=== PATIENT | female | born 1975 | race Caucasian/White ===

== ENCOUNTER → 2016-12-26 | Outpatient (CLI) | payer BC ==
--- NOTE | 2016-12-26 19:50 | REP ---
RIGHT WRIST SERIES, COMPLETE: 12/26/2016: Clinical history: Right wrist pain, base of the thumb. Comparison: None. Findings: Four views show the distal radius and ulna without fracture or focal lesion. Carpal bones and their articulations were unremarkable except for a small bone cyst in the ulnar aspect of the lunate and a tiny bone cyst in the capitate as benign findings. No fracture or erosive change. No fracture or subluxation about the metacarpals or MCP joints. I do not see significant CMC joint arthritis of the thumb. Impression: 1. No visible or displaced fracture, avulsion or erosion. There are a few small bone cysts in the wrist. No acute bony finding. Signed by Tony Taveras MD 12/26/2016 08:36 P
== END ==
LOC: M ADAMS 13:07
PROVIDERS: ATTEND Physician Assistant Medical
DX: M25.531 Pain in right wrist (principal)

== ENCOUNTER → 2017-01-22 | Outpatient (CLI) | payer BC ==
[2017-01-22 15:07] LABS: BASO % 0.3 % (0.0-1.0); EOS # 0.1 K/mm3 (0.0-0.50); EOS % 2.4 % (0.0-3.0); LARGE UNSTAINED CELL # 0.1 K/mm3 (0.0-0.4); LARGE UNSTAINED CELL % 3.2 % (0.0-4.0); LYMPH # 1.7 K/mm3 (1.5-4.5); LYMPH % 37.7 % (24.0-44.0); MEAN CORPUSCULAR HEMOGLOBIN 31.1 pg (27.0-33.0); MEAN CORPUSCULAR HGB CONC 33.8 g/dl (32.0-36.5); MONO # 0.2 K/mm3 (0.0-0.8); MONO % 4.4 % (0.0-5.0); NEUTROPHILS # 2.3 K/mm3 (1.8-7.7); PLATELET COUNT, AUTOMATED 192 k/mm3 (150-450); RED CELL DISTRIBUTION WIDTH 12.9 % (11.5-14.5); WHITE BLOOD COUNT 4.4 K/mm3 (4.0-10.0)
[2017-01-22 15:56] LABS: ALBUMIN 3.8 GM/DL (3.2-5.2); ALBUMIN/GLOBULIN RATIO 1.27 (1.00-1.93); ALKALINE PHOSPHATASE 59 U/L (45-117); ALT/SGPT 22 U/L (12-78); ANION GAP 7 MEQ/L (8-16); AST/SGOT 19 U/L (15-37); BILIRUBIN,TOTAL 0.3 MG/DL (0.2-1.0); BLOOD UREA NITROGEN 16 MG/DL (7-18); CALCIUM LEVEL 8.3 MG/DL (8.5-10.1); CARBON DIOXIDE LEVEL 26 MEQ/L (21-32); CHLORIDE LEVEL 109 MEQ/L (98-107); CREATININE FOR GFR 0.68 MG/DL (0.55-1.02); GLOMERULAR FILTRATION RATE > 60.0 (>60); GLUCOSE, FASTING 91 MG/DL (70-105); POTASSIUM SERUM 4.2 MEQ/L (3.5-5.1); SODIUM LEVEL 142 MEQ/L (136-145); TOTAL PROTEIN 6.8 GM/DL (6.4-8.2)
== END ==
LOC: M LAB 14:34
PROVIDERS: ATTEND Family Medicine
DX: R23.3 Spontaneous ecchymoses (principal)

== ENCOUNTER 2019-05-14 12:15 | Day surgery (SDC) | payer BC ==
[2019-05-14] VITALS (8 sets, daily range): BP systolic 90–122; BP diastolic 46–75
[~2019-05-14] VITALS: Ht 167.6 cm; Wt 76.7 kg
[~2019-05-14 12:15] MED LIST: FLEC50HA PO; LEVOTAB10 PO; LR 1,000 ML IV ONE; ceFAZolin SOD 2 GM in IV 1 EA IV ONE
[2019-05-14 12:53] LABS: HEMATOCRIT 38.6 % (36.0-47.0); HEMOGLOBIN 12.7 g/dl (12.0-15.5); MEAN CORPUSCULAR HEMOGLOBIN 30.5 pg (27.0-33.0); MEAN CORPUSCULAR HGB CONC 32.9 g/dl (32.0-36.5); MEAN CORPUSCULAR VOLUME 92.8 fl (80.0-96.0); PLATELET COUNT, AUTOMATED 220 10^3/uL (150-450); RED BLOOD COUNT 4.16 10^6/uL (4.00-5.40); WHITE BLOOD COUNT 5.5 10^3/uL (4.0-10.0)
[2019-05-14] MEDS ORDERED: ROCURONIUM BROMIDE 50 MG/5 ML VIAL As Ordered ONE (13:03)
[2019-05-14] MEDS ORDERED: LIDOCAINE 2% INJ 100 MG/5 ML SDV (FOR ANES.) As Ordered ONE (13:03)
[2019-05-14] MEDS ORDERED: PROPOFOL 200 MG/20 ML VIAL As Ordered ONE (13:03)
[2019-05-14] MEDS ORDERED: ONDANSETRON 4MG/2ML VIAL (J2405) As Ordered ONE ×2 (13:04→15:30)
[2019-05-14] MEDS ORDERED: MIDAZOLAM INJ 2 MG/2 ML VIAL (J2250) As Ordered ONE (13:04)
[2019-05-14] MEDS ORDERED: fentaNYL 100 MCG/2 ML INJECTION (J3010) As Ordered ONE ×3 (13:04→14:50)
[2019-05-14] MEDS ORDERED: dexameTHASONE 4 MG/ML 1ML VIAL (J1100) As Ordered ONE (13:04)
[2019-05-14] MEDS ORDERED: SUGAMMADEX SODIUM 500 MG/5 ML VIAL (BRIDION) As Ordered ONE (13:34)
[2019-05-14] MEDS ORDERED: KETOROLAC 60 MG/2 ML VIAL (J1885) As Ordered ONE (13:34)
[2019-05-14] MEDS ORDERED: ACETAMINOPHEN 1000MG 100ML IV BTL (OFIRMEV) (J0131 PER 10MG) As Ordered ONE (13:34)
[2019-05-14] MEDS ORDERED: MEPERIDINE INJ 25 MG/ML VIAL (J2175) As Ordered ONE (15:24)
[2019-05-14] MEDS ORDERED: MORPHINE 1MG/ML IN 0.9% NACL 100ML IV BAG As Ordered ONE (15:24)
[2019-05-14] MEDS: MEPERIDINE INJ 25 MG/ML VIAL (J2175) IV PRN ×2 (15:27→15:37)
[2019-05-14] MEDS: ONDANSETRON 4MG/2ML VIAL (J2405) IV PRN ×2 (15:27→16:08)
[2019-05-14] MEDS ORDERED: LR 1,000 ML IV SCH (15:45)
[2019-05-14] MEDS ORDERED: oxyCODONE 5MG TAB PO PRN (15:45)
[2019-05-14] MEDS ORDERED: fentaNYL 100 MCG/2 ML INJECTION (J3010) IV PRN (15:45)
[2019-05-14] MEDS ORDERED: METOCLOPRAMIDE INJ 10MG/2ML VIAL (J2765) IV PRN (15:45)
--- NOTE | 2019-05-14 16:20 | RO ---
DATE OF PROCEDURE: 05/14/2019 PREOPERATIVE DIAGNOSIS/INDICATION FOR SURGERY: Pain and bleeding. POSTOPERATIVE DIAGNOSIS: Pain and bleeding. PROCEDURE: Total vaginal hysterectomy with bilateral salpingectomy. The patient retains her ovaries at her request. SURGEON: Dr. Ordonez. ANESTHESIA: General endotracheal anesthesia. RHINOLOGIST: None. BRIEF DESCRIPTION OF PROCEDURE AND FINDINGS: Catalina was brought to the operating room where sufficient general endotracheal anesthesia was induced. She was prepped, draped and positioned in the usual sterile fashion with the bladder emptied and the weighted speculum placed in the anterior aspect of the cervix was grasped with a single tooth tenaculum as was the posterior aspect and a circumferential incision was made around the base of the cervix. Following which the cardial ligaments were isolated, clamped with the Boo clamps which were used throughout the portion of the case and transected using the supercut scissors. A 0 Vicryl suture was then used for hemostasis. We then proceeded to the uterosacrals which were clamped transected and ligated to help for later reattachment and incorporation into the cuff closure and the posterior reflection of the peritoneum was entered using the supercut scissors and the Deepali retractor placed. The anterior dissection was carefully continued to create the bladder flap and the uterine vasculare was then carefully clamped, transected and ligated along the lateral aspect of the uterus sticking close to the uterus, taking care to avoid injury to the ureters. We then reached the level of the pedicles of the tubes. The tube was transected to improve uterine mobility and then we were able to bring out the pedicle of the tube on the right side so the uterus and that tube was brought down but then the tube was quite friable so we went ahead and transected that after we had the uterine vasculature supported and we then completed the removal of first the right tube and then the left. We used sponge and a stick to check the pedicles. We had good hemostasis and there was a little bit of oozing at the cuff itself which was controlled with angle stitches of 0 Vicryl which also incorporated the uterosacrals and then we closed the cuff in a running locked stitch of 0-Vicryl with good approximation and hemostasis was achieved. A Nuñez was placed at the end of the case. ESTIMATED BLOOD LOSS FOR THE PROCEDURE: About 150 mL. FLUID REPLACEMENT: Crystalloid. COMPLICATIONS: None. CONDITION AND DISPOSITION: Catalina tolerated the procedure well and was recovering in the recovery room in good condition.
[2019-05-14] MEDS ORDERED: IBUPROFEN 600 MG TAB PO PRN (16:46)
[2019-05-14] MEDS ORDERED: NALBUPHINE HCL 10 MG/ML AMP (J2300) IV PRN (16:46)
[2019-05-14] MEDS ORDERED: diphenhydrAMINE INJ 50MG/ML VIAL (J1200) IV PRN (16:46)
[2019-05-14] MEDS ORDERED: EPIDURAL/PCA KEYS XX PRN (16:46)
[2019-05-14] MEDS ORDERED: MORPHINE 1MG/ML IN 0.9% NACL 100ML IV BAG IV PRN (16:46)
[2019-05-14] MEDS ORDERED: NALOXONE INJ 0.4 MG/1 ML VIAL (J2310) IV PRN (16:46)
[2019-05-14] MEDS: LR 1,000 ML IV SCH (19:05)
[2019-05-14] MEDS: FLECAINIDE 50MG TABLET PO SCH (20:56)
[2019-05-14 22:51] LABS: HEMATOCRIT 32.5 % (36.0-47.0); HEMOGLOBIN 10.8 g/dl (12.0-15.5)
[2019-05-15] MEDS: LR 1,000 ML IV SCH ×2 (02:57→07:58)
[2019-05-15 05:56] LABS: HEMATOCRIT 31.4 % (36.0-47.0); HEMOGLOBIN 10.5 g/dl (12.0-15.5); MEAN CORPUSCULAR HEMOGLOBIN 30.5 pg (27.0-33.0); MEAN CORPUSCULAR HGB CONC 33.4 g/dl (32.0-36.5); MEAN CORPUSCULAR VOLUME 91.3 fl (80.0-96.0); PLATELET COUNT, AUTOMATED 170 10^3/uL (150-450); RED BLOOD COUNT 3.44 10^6/uL (4.00-5.40); WHITE BLOOD COUNT 8.6 10^3/uL (4.0-10.0)
[2019-05-15 06:00] VITALS: BP 105/57
[2019-05-15] MEDS: FLECAINIDE 50MG TABLET PO SCH (07:56)
[2019-05-15] MEDS: NORCO, ANEXSIA 5/325MG TABLET (HYDROcodone/ACETAMINOPHEN) PO PRN ×2 (07:57→12:59)
[2019-05-15] MEDS ORDERED: NORC1TAB7 PO (08:12)
[2019-05-15] MEDS ORDERED: ADVI100T PO (08:12)
[2019-05-15 10:00] VITALS: BP 97/68
== END 2019-05-15 13:17 | disposition home or self-care (01) ==
LOC: M SDC 12:15 → M MSPAV 16:36 → M SDC 05-15 13:17
PROVIDERS: ATTEND Obstetrics & Gynecology
DX: N92.6 Irregular menstruation, unspecified (principal); N80.0 Endometriosis of uterus; Z79.899 Other long term (current) drug therapy; Z91.013 Allergy to seafood; Z91.041 Radiographic dye allergy status
CPT/HCPCS: 36415; 58262; 81025; 85014; 85018; 85027; 86850; 86900; 86901; 88307; J0131; J0690; J1100; J1885; J2175; J2250; J2405; J3010

== ENCOUNTER 2019-05-17 20:48 | Emergency (ER) | payer BC ==
[~2019-05-17] VITALS: Ht 167.6 cm; Wt 74.5 kg
[~2019-05-17 20:48] MED LIST changes: +ADVI100T PO; -LR 1,000 ML IV ONE; +NORC1TAB7 PO; -ceFAZolin SOD 2 GM in IV 1 EA IV ONE
[2019-05-17] MEDS ORDERED: FLEC25TA (20:55)
[2019-05-17] MEDS ORDERED: HYDR-3713 (20:55)
[2019-05-17] MEDS ORDERED: IBUP-1022 (20:55)
[2019-05-17] MEDS ORDERED: NS 1,000 ML IV ONE (21:30)
[2019-05-17 21:45] LABS: BASO % 0.3 % (0.0-1.0); EOS # 0.2 10^3/uL (0.0-0.5); EOS % 3.1 % (0.0-3.0); HEMATOCRIT 35.4 % (36.0-47.0); LYMPH # 1.3 10^3/uL (1.5-5.0); LYMPH % 19.4 % (24.0-44.0); MEAN CORPUSCULAR HEMOGLOBIN 30.8 pg (27.0-33.0); MEAN CORPUSCULAR HGB CONC 33.9 g/dl (32.0-36.5); MONO # 0.7 10^3/uL (0.0-0.8); MONO % 9.9 % (0.0-5.0); NEUTROPHILS # 4.4 10^3/uL (1.5-8.5); NEUTROPHILS % 66.8 % (36.0-66.0); PLATELET COUNT, AUTOMATED 200 10^3/uL (150-450); RED BLOOD COUNT 3.89 10^6/uL (4.00-5.40); WHITE BLOOD COUNT 6.6 10^3/uL (4.0-10.0)
[2019-05-17 22:16] LABS: ALBUMIN 3.5 GM/DL (3.2-5.2); ALT/SGPT 12 U/L (12-78); BILIRUBIN,TOTAL 0.4 MG/DL (0.2-1.0); BLOOD UREA NITROGEN 8 MG/DL (7-18); CALCIUM LEVEL 8.5 MG/DL (8.5-10.1); CARBON DIOXIDE LEVEL 25 MEQ/L (21-32); CHLORIDE LEVEL 109 MEQ/L (98-107); GLOMERULAR FILTRATION RATE > 60.0 (>58); GLUCOSE, FASTING 92 MG/DL (70-100); POTASSIUM SERUM 4.1 MEQ/L (3.5-5.1); SODIUM LEVEL 143 MEQ/L (136-145); TOTAL PROTEIN 6.5 GM/DL (6.4-8.2)
[2019-05-17] MEDS ORDERED: READI-CAT 2 PO SCH (23:15)
[2019-05-17 23:34] VITALS: BP 136/66
== END 2019-05-17 23:43 | disposition left against medical advice (07) ==
LOC: M ED 20:48
DX: R19.7 Diarrhea, unspecified (principal); Z86.79 Personal history of other diseases of the circulatory system; Z79.899 Other long term (current) drug therapy; Z91.041 Radiographic dye allergy status; Z91.89 Other specified personal risk factors, not elsewhere classified; Z91.013 Allergy to seafood; Z53.21 Procedure and treatment not carried out due to patient leaving prior to being seen by health care provider

== ENCOUNTER → 2020-01-15 | Outpatient (CLI) | payer BC ==
[~2020-01-15] MED LIST changes: +FLEC25TA; +HYDR-3713; +IBUP-1022
--- NOTE | 2020-01-16 08:19 | REP ---
PELVIS: Complete exam of the pelvis includes five views. There is no acute fracture or dislocation. There is partial sacralization of L5 on the left. Mild tendinous calcification is seen at the left greater trochanter of the proximal left femur. IMPRESSION: No acute fracture or dislocation. Electronically Signed by Elieser Ramon MD 01/17/2020 11:23 P
== END ==
LOC: M ADAMS 13:40
PROVIDERS: ATTEND Physician Assistant
DX: S39.013A Strain of muscle, fascia and tendon of pelvis, initial encounter (principal); X58.XXXA Exposure to other specified factors, initial encounter; Y92.89 Other specified places as the place of occurrence of the external cause

== ENCOUNTER 2020-09-12 14:20 | Emergency (ER) | payer BC ==
[~2020-09-12] VITALS: Ht 167.6 cm; Wt 77.8 kg
[2020-09-12] MEDS ORDERED: xyzal (14:38)
[2020-09-12 15:07] LABS: BASO % 0.6 % (0.0-1.0); EOS # 0.1 10^3/uL (0.0-0.5); EOS % 2.1 % (0.0-3.0); HEMATOCRIT 40.4 % (36.0-47.0); HEMOGLOBIN 13.3 g/dl (12.0-15.5); LYMPH # 1.9 10^3/uL (1.5-5.0); LYMPH % 35.6 % (24.0-44.0); MEAN CORPUSCULAR HEMOGLOBIN 30.1 pg (27.0-33.0); MEAN CORPUSCULAR HGB CONC 32.9 g/dl (32.0-36.5); MEAN CORPUSCULAR VOLUME 91.4 fl (80.0-96.0); MONO # 0.4 10^3/uL (0.0-0.8); MONO % 8.3 % (2.0-8.0); NEUTROPHILS # 2.8 10^3/uL (1.5-8.5); PLATELET COUNT, AUTOMATED 225 10^3/uL (150-450); RED BLOOD COUNT 4.42 10^6/uL (4.00-5.40); WHITE BLOOD COUNT 5.3 10^3/uL (4.0-10.0)
--- NOTE | 2020-09-12 15:16 | REP ---
INDICATION: CHEST PAIN COMPARISON: 06/14/2012 TECHNIQUE: Portable AP view of the chest FINDINGS: The mediastinum and cardiac silhouette are stable and within normal limits for portable technique. The lung hawthorne demonstrate stable chronic changes without acute consolidation, effusion, or pneumothorax. Skeletal structures are intact. IMPRESSION: No acute cardiopulmonary process appreciated. <Electronically signed by Kishore Dockery > 09/12/20 [id number]
[2020-09-12 15:24] LABS: PROTHROMBIN TIME 13.4 SECONDS (12.5-14.3)
[2020-09-12] MEDS ORDERED: LEVOTAB10 PO (15:35)
[2020-09-12 15:43] LABS: ALBUMIN 4.2 GM/DL (3.2-5.2); BILIRUBIN,DIRECT 0.1 MG/DL (0.0-0.2); BILIRUBIN,TOTAL 0.4 MG/DL (0.2-1.0); THYROID STIMULATING HORMONE 2.28 uIU/ML (0.358-3.740); TOTAL PROTEIN 7.3 GM/DL (6.4-8.2)
--- NOTE | 2020-09-12 16:07 | ECGEPIP ---
[facility] - ED Test Date: 2020-09-12 Pat Name: REYNA LOVE Department: Room: - Gender: Female Legal Paraprofessional: CHIDI : [id number] Requested By: NATALIA GRULLON Order Number: [id number] Reading MD: Junito Spaulding Measurements Intervals [place] Rate: 56 P: 56 [place]: 184 QRS: 75 QRSD: 82 T: 50 QT: 426 QTc: 411 Interpretive Statements Sinus bradycardia NO PRIORS FOR COMPARISON Electronically Signed on 09-12-2020 16:06:55 EST by Junito Spaulding
[2020-09-12 17:00] VITALS: BP 104/68
--- NOTE | 2020-09-13 12:04 | ECGEPIP ---
[facility] - ED Test Date: 2020-09-12 Pat Name: REYNA LOVE Department: Room: - Gender: Female Ticket Counter: ROHAN : 1975 Requested By: NATALIA GRULLON Order Number: [id number] Reading MD: Junito Spaulding Measurements Intervals [place] Rate: 65 P: 21 [place]: 98 QRS: 95 QRSD: 136 T: -60 QT: 452 QTc: 470 Interpretive Statements Sinus rhythm with premature atrial complexes with aberrant conduction in a pattern of bigeminy ECTOPY NEW COMPARED TO PRIOR ON SAME DATE Electronically Signed on 09-13-2020 12:03:49 EST by Junito Spaulding
[2020-09-14 23:10] LABS: FLECAINIDE LEVEL 0.11 ug/mL (0.20-1.00)
== END 2020-09-12 17:02 | disposition home or self-care (01) ==
LOC: M ED 14:20 → CANBEDREQ 15:44 → M ED 17:02
DX: I49.3 Ventricular premature depolarization (principal); R00.1 Bradycardia, unspecified; R42 Dizziness and giddiness; Z79.899 Other long term (current) drug therapy

== ENCOUNTER → 2020-09-28 | Outpatient (CLI) | payer BC ==
[~2020-09-28] MED LIST changes: +xyzal
--- NOTE | 2020-09-28 09:49 | REP ---
INDICATION: N64.4 LT BREAST MASTODYNIA. Patient reports left breast pain from 2:00 to 4:00 position laterally. Previously thought she felt a lump in this region but not able to feel lump today. COMPARISON: Comparison mammography is from 25 July 2020.. TECHNIQUE: The left lateral breast is scanned sonographically. FINDINGS: There are multiple small benign subcentimeter cysts. Heterogeneous fibroglandular background echotexture is seen. At the 3 o'clock position in the area of pain, 4 cm from the nipple, there is a 0.6 by 0.6 x 0.4 cm cyst. This is the largest cyst visible. It does not appear sonographically suspicious. IMPRESSION: BI-RADS category 2 benign findings. A small cyst is visible in the lateral left mid breast. Otherwise negative. Clinical follow-up is advised. <Electronically signed by Pablo Castañeda > 09/28/20 [id number]
== END ==
LOC: M WHC 08:09
PROVIDERS: ATTEND Family Medicine
DX: N60.12 Diffuse cystic mastopathy of left breast (principal); N64.4 Mastodynia

== ENCOUNTER → 2021-04-07 | Outpatient (CLI) | payer BC ==
--- NOTE | 2021-04-07 09:07 | REP ---
INDICATION: CONTUSION OF THE RIGHT WALL THORAX COMPARISON: None. TECHNIQUE: Frontal view of the chest with multiple views of the right hemithorax. FINDINGS: Frontal view of the chest demonstrates no acute cardiopulmonary process, contusion, effusion, or pneumothorax. Multiple views of the hemithorax demonstrates no acute rib fracture/injury or pathology. IMPRESSION: Normal rib series. No significant or displaced right rib fracture identified. <Electronically signed by Kishore Dockery > 04/07/21 [id number]
== END ==
LOC: M ADAMS 08:07
PROVIDERS: ATTEND Family Medicine
DX: S20.211A Contusion of right front wall of thorax, initial encounter (principal); X58.XXXA Exposure to other specified factors, initial encounter; Y92.89 Other specified places as the place of occurrence of the external cause; Y93.9 Activity, unspecified; Y99.9 Unspecified external cause status

== ENCOUNTER → 2021-10-18 | Outpatient (CLI) | payer BC ==
[2021-10-18 16:21] LABS: HEMATOCRIT 37.1 % (36.0-47.0); HEMOGLOBIN 12.5 g/dl (12.0-15.5); MEAN CORPUSCULAR HEMOGLOBIN 31.5 pg (27.0-33.0); MEAN CORPUSCULAR HGB CONC 33.7 g/dl (32.0-36.5); MEAN CORPUSCULAR VOLUME 93.5 fl (80.0-96.0); PLATELET COUNT, AUTOMATED 249 10^3/uL (150-450); RED BLOOD COUNT 3.97 10^6/uL (4.00-5.40); WHITE BLOOD COUNT 5.3 10^3/uL (4.0-10.0)
[2021-10-18 16:36] LABS: ALBUMIN 3.9 GM/DL (3.2-5.2); ALT/SGPT 25 U/L (12-78); BILIRUBIN,TOTAL 0.3 MG/DL (0.2-1.0); BLOOD UREA NITROGEN 13 MG/DL (7-18); CARBON DIOXIDE LEVEL 27 MEQ/L (21-32); CHLORIDE LEVEL 110 MEQ/L (98-107); CREATININE FOR GFR 0.66 MG/DL (0.55-1.30); GLOMERULAR FILTRATION RATE > 60.0 (>58); GLUCOSE, FASTING 95 MG/DL (70-100); MAGNESIUM LEVEL 2.2 MG/DL (1.8-2.4); POTASSIUM SERUM 3.8 MEQ/L (3.5-5.1); SODIUM LEVEL 142 MEQ/L (136-145); TOTAL PROTEIN 6.8 GM/DL (6.4-8.2)
== END ==
LOC: M ADAMS 13:24
PROVIDERS: ATTEND Physician Assistant
DX: I49.3 Ventricular premature depolarization (principal)

== ENCOUNTER → 2022-04-26 | Outpatient (REF) | payer BC ==
[2022-04-26 15:11] LABS: BLOOD UREA NITROGEN 17 MG/DL (7-18); CALCIUM LEVEL 8.9 MG/DL (8.5-10.1); CARBON DIOXIDE LEVEL 27 MEQ/L (21-32); CHLORIDE LEVEL 108 MEQ/L (98-107); CREATININE FOR GFR 0.68 MG/DL (0.55-1.30); GLOMERULAR FILTRATION RATE > 60.0 (>58); GLUCOSE, FASTING 77 MG/DL (70-100); MAGNESIUM LEVEL 2.2 MG/DL (1.8-2.4); POTASSIUM SERUM 4.4 MEQ/L (3.5-5.1); SODIUM LEVEL 140 MEQ/L (136-145)
== END ==
LOC: M LABDRWAD 13:03
PROVIDERS: ATTEND Physician Assistant
DX: I49.3 Ventricular premature depolarization (principal)

== ENCOUNTER → 2022-11-01 | Outpatient (CLI) | payer BC | LOC: M SOG 08:11 | PROVIDERS: ATTEND Physician Assistant | DX: M79.644 Pain in right finger(s) (principal); M85.641 Other cyst of bone, right hand ==

== ENCOUNTER → 2022-12-21 | Outpatient (CLI) | payer BC | LOC: M WHC 07:52 | PROVIDERS: ATTEND Family Medicine | DX: Z13.21 Encounter for screening for nutritional disorder (principal); Z13.820 Encounter for screening for osteoporosis ==

== ENCOUNTER → 2023-01-22 | Outpatient (CLI) | payer BC | LOC: M WHC 08:04 | PROVIDERS: ATTEND Family Medicine | DX: R92.8 Other abnormal and inconclusive findings on diagnostic imaging of breast (principal) | CPT/HCPCS: 76642; 77065; G0279 ==

== ENCOUNTER → 2023-05-16 | Outpatient (REF) | payer BC | LOC: M SFHCWAGY 13:06 | PROVIDERS: ATTEND Nurse Practitioner Family | DX: R10.2 Pelvic and perineal pain (principal) ==

== ENCOUNTER → 2023-05-21 | Outpatient (CLI) | payer BC | LOC: M WHC 06:40 | PROVIDERS: ATTEND Nurse Practitioner Family | DX: R10.2 Pelvic and perineal pain (principal); Z90.79 Acquired absence of other genital organ(s) ==

== ENCOUNTER → 2023-08-26 | Outpatient (CLI) | payer BC | LOC: M WHC 15:27 | PROVIDERS: ATTEND Registered Nurse | DX: N64.59 Other signs and symptoms in breast (principal) | CPT/HCPCS: 77065; G0279 ==

== ENCOUNTER → 2023-11-19 | Outpatient (CLI) | payer BC | LOC: M RAD 06:28 | PROVIDERS: ATTEND Registered Nurse | DX: R51.9 Headache, unspecified (principal) ==

== ENCOUNTER 2023-12-04 11:41 | Emergency (ER) | payer BC ==
[~2023-12-04] VITALS: Ht 167.6 cm; Wt 78.5 kg
[2023-12-04] MEDS ORDERED: QUER500C PO (11:48)
[2023-12-04] MEDS: NS 1,000 ML IV ONE (12:19)
[2023-12-04] MEDS: ASPIRIN 81MG CHEW TABLET PO ONE (12:41)
[2023-12-04 12:42] VITALS: BP 117/59
[2023-12-04] MEDS: amLODIPine 5 MG TAB PO ONE (12:42)
[2023-12-04 12:44] LABS: BASO % 0.6 % (0.0-1.0); EOS # 0.1 10^3/uL (0.0-0.5); EOS % 1.4 % (0.0-3.0); HEMATOCRIT 40.1 % (36.0-47.0); HEMOGLOBIN 13.6 g/dl (12.0-15.5); LYMPH # 1.6 10^3/uL (1.5-5.0); LYMPH % 32.6 % (24.0-44.0); MEAN CORPUSCULAR HEMOGLOBIN 31.3 pg (27.0-33.0); MEAN CORPUSCULAR HGB CONC 33.9 g/dl (32.0-36.5); MEAN CORPUSCULAR VOLUME 92.4 fl (80.0-96.0); MONO # 0.4 10^3/uL (0.0-0.8); MONO % 7.9 % (2.0-8.0); NEUTROPHILS # 2.8 10^3/uL (1.5-8.5); NEUTROPHILS % 57.3 % (36.0-66.0); PLATELET COUNT, AUTOMATED 237 10^3/uL (150-450); RED BLOOD COUNT 4.34 10^6/uL (4.00-5.40); WHITE BLOOD COUNT 4.8 10^3/uL (4.0-10.0)
[2023-12-04 12:59] LABS: INR 1.01; PARTIAL THROMBOPLASTIN TIME 26.9 SECONDS (24.8-34.2)
[2023-12-04 13:09] LABS: HCG, SERUM QUALITATIVE NEGATIVE (NEGATIVE)
[2023-12-04 13:10] LABS: CPK CREATINE PHOSPHOKINASE 128 U/L (34-145)
[2023-12-04 13:11] LABS: ALBUMIN 4.2 G/DL (3.2-5.2); ALKALINE PHOSPHATASE 53 U/L (46-116); ALT/SGPT 18 U/L (7.0-40); AST/SGOT 15 U/L (<34); BILIRUBIN,DIRECT 0.2 MG/DL (<0.4); BILIRUBIN,TOTAL 0.7 MG/DL (0.3-1.2); BLOOD UREA NITROGEN 11 MG/DL (9-23); CALCIUM LEVEL 9.2 MG/DL (8.5-10.1); CARBON DIOXIDE LEVEL 28 MMOL/L (20-31); CHLORIDE LEVEL 106 MMOL/L (98-107); CK-MB VALUE MASS 1.2 NG/ML (<3.6); CREATININE FOR GFR 0.63 MG/DL (0.55-1.30); GLOMERULAR FILTRATION RATE > 60.0 (>58); GLUCOSE, FASTING 88 MG/DL (60-100); MB/CK RELATIVE INDEX 0.93 (< OR =4); POTASSIUM SERUM 3.8 MMOL/L (3.5-5.1); SODIUM LEVEL 139 MMOL/L (136-145); THYROID STIMULATING HORMONE 3.225 uIU/ML (0.55-4.78); TOTAL PROTEIN 7.1 G/DL (5.7-8.2)
[2023-12-04 13:59] LABS: CK-MB VALUE MASS 1.1 NG/ML (<3.6)
[2023-12-04 14:00] LABS: MB/CK RELATIVE INDEX 1.02 (< OR =4)
[2023-12-04] MEDS ORDERED: ASPI81TA26 PO (15:48)
[2023-12-04 16:00] VITALS: BP 105/60; TEMP 98.6; O2SAT 98
== END 2023-12-04 16:09 | disposition home or self-care (01) ==
LOC: M ED 11:41
DX: G45.9 Transient cerebral ischemic attack, unspecified (principal); R00.1 Bradycardia, unspecified; F10.10 Alcohol abuse, uncomplicated; Z91.013 Allergy to seafood; Z91.041 Radiographic dye allergy status; Z79.82 Long term (current) use of aspirin; Z79.899 Other long term (current) drug therapy

== ENCOUNTER → 2024-09-23 | Outpatient (CLI) | payer BC ==
[~2024-09-23] MED LIST changes: +ASPI81TA26 PO; +QUER500C PO
== END ==
LOC: M WHC 16:28
PROVIDERS: ATTEND Registered Nurse
DX: Z12.31 Encounter for screening mammogram for malignant neoplasm of breast (principal); R92.333 Mammographic heterogeneous density, bilateral breasts

== ENCOUNTER → 2024-09-30 | Outpatient (CLI) | payer BC | LOC: M WHC 12:27 | PROVIDERS: ATTEND Registered Nurse | DX: R92.8 Other abnormal and inconclusive findings on diagnostic imaging of breast (principal) ==

== ENCOUNTER → 2025-03-10 | Outpatient (CLI) | payer BC ==
[~2025-03-10] MED LIST changes: +ECOT81TA5 PO; -IBUP-1022; +IBUP600T42; +PROBCAP2 PO
== END ==
LOC: M PLAIMG 06:47
PROVIDERS: ATTEND Surgery
DX: R10.31 Right lower quadrant pain (principal); R93.2 Abnormal findings on diagnostic imaging of liver and biliary tract; R93.421 Abnormal radiologic findings on diagnostic imaging of right kidney; M47.815 Spondylosis without myelopathy or radiculopathy, thoracolumbar region; M41.9 Scoliosis, unspecified; K42.9 Umbilical hernia without obstruction or gangrene

== ENCOUNTER 2025-03-12 10:08 | Day surgery (SDC) | payer BC ==
[~2025-03-12] VITALS: Ht 167.6 cm; Wt 75.0 kg
[2025-03-12 11:41] VITALS: BP 107/56; TEMP 97.1; O2SAT 100
== END 2025-03-12 12:00 | disposition home or self-care (01) ==
LOC: M OPP 10:08
PROVIDERS: ATTEND Surgery
DX: Z12.11 Encounter for screening for malignant neoplasm of colon (principal); K64.0 First degree hemorrhoids; Z91.013 Allergy to seafood; Z91.041 Radiographic dye allergy status; Z88.8 Allergy status to other drugs, medicaments and biological substances; Z79.899 Other long term (current) drug therapy; J45.909 Unspecified asthma, uncomplicated

== ENCOUNTER 2025-03-20 19:48 | Emergency (ER) | payer BC ==
[~2025-03-20] VITALS: Ht 167.6 cm; Wt 77.3 kg
[2025-03-20 19:53] VITALS: BP 129/72; TEMP 97.3; O2SAT 100
== END 2025-03-20 22:35 | disposition left against medical advice (07) ==
LOC: M ED 19:48
DX: Z53.21 Procedure and treatment not carried out due to patient leaving prior to being seen by health care provider (principal)